=== PATIENT | female | born 2000 | race Caucasian/White ===

== ENCOUNTER 2023-08-20 02:27 | Emergency (ER) | payer OTHER, SELFPAY ==
[2023-08-20 02:30] VITALS: BP 112/68; PULSE 96; RESP 16; TEMP 36.4; O2SAT 100; BMI 21.0
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
--- NOTE | 2023-08-20 03:03 | PC.NURSE ---
0242 patient requested to sign out AMA. Paper signed. Told to return for any problems
== END 2023-08-20 02:42 | disposition left against medical advice (07) ==
PROVIDERS: Emergency Provider Internal Medicine
DX: O9A.219 Injury, poisoning and certain other consequences of external causes complicating pregnancy, unspecified trimester (principal); S00.83XA Contusion of other part of head, initial encounter; V58.5XXA Driver of pick-up truck or van injured in noncollision transport accident in traffic accident, initial encounter; R04.0 Epistaxis; T14.8XXA Other injury of unspecified body region, initial encounter; Z3A.00 Weeks of gestation of pregnancy not specified; Z53.29 Procedure and treatment not carried out because of patient's decision for other reasons
CPT/HCPCS: 99282